=== PATIENT | male | born 1950 | race Caucasian/White ===

== ENCOUNTER → 2017-08-02 | Outpatient (CLI) | payer OTHER ==
[~2017-08-02] MED LIST: ALEVE220 MG PO; ASPIR 8181 MG PO; CHLORZOXAZONE500 MG PO; FLOMAX0.4 MG PO
--- NOTE | 2017-08-03 13:45 | Diagnostic Imaging Report ---
History: Mid cervical disks disorder. Neck pain. Preop Comparison studies: None Technique: Sagittal T1, T2 and IR, axial T2 and axial gradient echo Intravenous contrast: None Findings: Alignment: Straightening of the cervical lordosis. Grade 1 retrolistheses of C6 over C7 No scoliosis. Cervicomedullary junction: Degenerative changes of the atlantoaxial joint with irregularity of the dens and thickened transverse ligament Soft tissues: Laminectomy changes at C5 with blooming artifact on the left posterior elements secondary to metallic instrumentation Spinal cord: Atrophic changes with myelomalacia from C4 superior endplate through C6 superior endplate. Mild increased T2 signal at C6-7. Vertebrae: Edematous changes at C6 and C7 vertebral body, likely degenerative, the remaining signal intensity of the vertebra are unremarkable.. No fractures, infection or neoplasm. Degenerative changes: C2-C3: Patent canal and foramina. Fused facet joints. C3-C4: Patent canal and foramina. Fused facet joints C4-C5: Disc degeneration with loss of T2 signal and decreased intervertebral space. Patent canal and foramina. Fused facet joints C5-C6: Disc degeneration with mild increased T2 signal, likely degenerative. Diffuse disc osteophyte complex and bilateral uncinate process hypertrophy with patent canal and foramina. C6-C7: Disc degeneration with decreased intervertebral space and Modic type I changes. Diffuse disc osteophyte complex, bilateral uncinate process hypertrophy, facet hypertrophy and ligamentum flavum thickening results in severe canal stenosis and severe bilateral foraminal narrowing C7-T1: Disc degeneration with loss of T2 signal. Central disc osteophyte complex, bilateral uncinate process hypertrophy and facet hypertrophy results in mild canal stenosis and mild bilateral foraminal narrowing. IMPRESSION: 1. Severe degenerative canal stenosis and severe bilateral foraminal narrowing at C6-7 with mildly increased T2 signal in the cord suggestive of compressive myelitis. 2. Severe degenerative changes at C6-7 intervertebral disc with endplate edema secondary to Modic type I changes. 3. Posterior decompression at the level of C5 with patent canal and residual myelomalacia of the spinal cord at this level. Signed by: DR Joao Baltazar M.D. on 08/03/2017 1:41 PM
== END ==
LOC: MRI 14:13
PROVIDERS: ATTEND Neurological Surgery
DX: M50.020 Cervical disc disorder with myelopathy, mid-cervical region, unspecified level (principal)
CPT/HCPCS: 72141

== ENCOUNTER 2017-08-04 09:58 | Observation (INO) | payer OTHER ==
[2017-08-02 16:06] LABS: BASOPHILS % 0.3 % (0.0-1.0); EOSINOPHILS % 0.4 % (0.0-6.0); HEMATOCRIT 45.1 % (38.2-49.6); HEMOGLOBIN 15.6 g/dL (14.0-18.0); LYMPHOCYTES # (AUTO) 0.9 (1.0-3.2); LYMPHOCYTES % 9.3 % (18.0-39.1); MEAN CORPUSCULAR HEMOGLOBIN 30.1 pg (28-32); MEAN CORPUSCULAR HGB CONC 34.6 g/dL (31-35); MEAN CORPUSCULAR VOLUME 86.9 fL (81-99); MONOCYTES # (AUTO) 0.9 (0.2-0.8); MONOCYTES % 9.7 % (4.4-11.3); NEUTROPHILS # (AUTO) 7.6 (2.1-6.9); NEUTROPHILS % 80.1 % (38.7-80.0); PLATELET COUNT 219 x10e3/uL (140-360); RED BLOOD COUNT 5.19 x10e6/uL (4.3-5.7); RED CELL DISTRIBUTION WIDTH 11.9 % (11.7-14.4)
[2017-08-02 16:17] LABS: INR 1.1; PROTHROMBIN TIME 13.4 seconds (11.9-14.5)
[2017-08-02 16:18] LABS: PARTIAL THROMBOPLASTIN TIME 33.9 seconds (23.8-35.5)
[2017-08-02 16:25] LABS: ANION GAP 12.7 mmol/L (8-16); BLOOD UREA NITROGEN 25 mg/dL (7-26); BUN/CREATININE RATIO 29 (6-25); CALCIUM 9.8 mg/dL (8.4-10.2); CARBON DIOXIDE 27 mmol/L (22-29); CHLORIDE 105 mmol/L (98-107); CREATININE, SERUM 0.87 mg/dL (0.72-1.25); EST GLOMERULAR FILTRATION RATE > 60 ML/MIN (60-); GLUCOSE 134 mg/dL (74-118); POTASSIUM 3.7 mmol/L (3.5-5.1); SODIUM 141 mmol/L (136-145)
--- NOTE | 2017-08-02 17:24 | Diagnostic Imaging Report ---
PROCEDURE: Frontal and lateral views of the chest. COMPARISON: None. INDICATIONS: PRE-OPERATIVE CHEST X-RAY FOR NECK SURGERY FINDINGS: Lines/tubes: None. Lungs: The lungs are well inflated and clear. There is no evidence of pneumonia or pulmonary edema. Pleura: There is no pleural effusion or pneumothorax. Heart and mediastinum: The heart and the mediastinum are normal. Bones: No acute bony abnormality. Mild degenerative changes in the thoracic spine. IMPRESSION: 1. No acute cardiopulmonary abnormalities. Jose Luis Mock M.D. Dictated by: Jose Luis Mock M.D. on 08/02/2017 at 17:27 Electronically approved by: Jose Luis Mock M.D. on 08/02/2017 at 17:27
[~2017-08-04] VITALS: Ht 167.6 cm; Wt 64.9 kg
[~2017-08-04 09:58] MED LIST changes: +ACETAMINOPHEN 1000 MG/100 ML 100 ML IV ONE; +BACITRACIN 50,000 UNIT VIAL ONE; +BUPIVACAINE 0.5%/EPI 30 ML SDV INJ ONE; +CEFAZOLIN SOD 1 GM VIAL ONE; +GELATIN SPONGE SZ 100 ONE; +LIDOCAINE HCL (LTA) 4 ML SOLN ONE; +THROMBIN FOR SOLN 5,000 UNIT VIAL ONE
[2017-08-04] MEDS ORDERED: ACETAMINOPHEN 325 MG TAB PO PRN (12:15)
[2017-08-04] MEDS ORDERED: HYDROMORPHONE 2MG/ML INJ IV PRN (12:15)
[2017-08-04] MEDS ORDERED: HYDROMORPHONE 1MG/1ML INJ IV PRN (12:15)
[2017-08-04] MEDS ORDERED: MORPHINE SULFATE 5 MG/ML VIAL IM PRN (12:15)
[2017-08-04] MEDS ORDERED: MAGNESIUM/ALUMINUM/SIMETHICONE 30 ML UDC PO PRN (12:15)
[2017-08-04] MEDS ORDERED: PROMETHAZINE HCL (IM) 25 MG/ML VIAL IM PRN (12:15)
[2017-08-04] MEDS ORDERED: ONDANSETRON HCL INJ 2 MG/ML VIAL IV PRN (12:15)
[2017-08-04 13:36] VITALS: BP_SYST 164; BP_SYST 178; BP_DIAS 88; BP_DIAS 95
--- NOTE | 2017-08-04 13:49 | Operative Report ---
DATE OF PROCEDURE: August 04, 2017 PREOPERATIVE DIAGNOSIS: C5-C6 and C6-C7 spondylosis with mild low radiculopathy, M47.12. POSTOPERATIVE DIAGNOSIS: C5-C6 and C6-C7 spondylosis with mild low radiculopathy, M47.12. PROCEDURES 1. C5-C6 anterior cervical diskectomy and microsurgical osteophyte resection and allograft fusion, 35477. 2. C6-C7 anterior cervical diskectomy and microsurgical osteophyte resection and allograft fusion, 97829. 3. Preparation of iliac crest cortical cancellous allograft, 22215. 4. C5-C6 and C6-C7 anterior cervical plating with Synthes CSLP plate, [id number]. ANESTHESIA: General. INDICATIONS: Patient is a 67-year-old man with a previous spinal cord injury and a previous posterior fusion from C2 to C5, who now presents with a left C7 radiculopathy. He is found to have a large disk osteophyte complex at C6-C7 producing severe spinal stenosis and bilateral foraminal stenosis. His MRI shows worsening myelomalacia within the cord behind the vertebral bodies of C5, C6 and C7. The patient was taken to the operating room for decompression and fusion of the C5-C6 and C6-C7 in order to decompress his spinal cord and to be bridge his previous C2 and C5 fusion to the new C6-C7 segments. PROCEDURE: After induction of general anesthesia, the patient was placed on the operating table in the supine position. The right side of neck was prepped and draped in a sterile fashion. The fluoroscopic C-arm was positioned in a cross-table orientation. A transverse incision was created on the right side of the neck superimposed on the C6 vertebral body as determined by fluoroscopy. The platysma was divided in line with the incision. A subplatysmal dissection was carried out. An avascular plane of dissection was developed in the median sternocleidomastoid muscle, as well as medial to the carotid sheath to the anterior border of the cervical spine. The deep cervical fascia was opened. The esophagus was retracted to the left. The attachments of the longus coli muscles to the anterolateral aspects of the vertebral bodies of C5, C6 and C7 were divided. The anterior longitudinal was resected. Coppell posts were inserted into C5 and C7. The Coppell distractor was used distract both disk spaces simultaneously. The large anterior osteophytes were resected with Leksell rongeurs. The contents of both disks were thoroughly evacuated with angled curettes and pituitary rongeurs. At C6-C7, it was necessary to remove portions of the inferior end-plate of C6 and superior end-plate of C7 in order to re-establish the disk height and get access to the very large posterior osteophyte. The posterior osteophyte was then drilled with a 2 mm cutting bur until it was hollowed down and reduced to a thin shell of cortical bone, which was then elevated along with its attachments to the posterior longitudinal ligament away from the dura with a microhook and resected in piecemeal fashion with a Kerrison rongeur until it was completely removed. Excellent decompression of the dura was thus achieved. The medial aspects of the uncinate processes were resected bilaterally to expose and decompress the origins of the C7 nerve roots, particularly on the left side. After satisfactory compression had been achieved, the end-plates at both levels were prepared for fusion. Two pieces of tricortical and iliac crest allograft were cut to the size and shapes of the disk spaces and were inserted into the disk spaces under distraction and fluoroscopic guidance. The distraction was released and distraction posts were removed. A Synthes CSLP 34 mm anterior cervical plate was selected, and was affixed to the vertebral bodies of C5, C6 and C7 with one 14 and five 16-mm screws. All screws were 4.35 mm in diameter. All screws were locked with the appropriate locking screws. An excellent construct was obtained. The wound was copiously irrigated with Bacitracin solution. Meticulous hemostasis was secured. Retractor was removed. The platysma was closed with 3-0 Vicryl sutures. The skin was closed with 4-0 Monocryl sutures in a subcuticular fashion. Steri-Strips and dressing were applied. The patient was awakened, extubated and taken to the postanesthesia care unit in stable condition. No intraoperative complications were encountered. Estimated blood loss was 20 mL. Job#: [id number] AURELIA
[2017-08-04] MEDS ORDERED: CEFAZOLIN SOD 1 GM/NS 50ML 50 ML IV SCH (14:00)
[2017-08-04] MEDS ORDERED: FENTANYL CITRATE/PF 100MCG/2 ML INJ ONE ×2 (14:25→18:28)
[2017-08-04 14:53] VITALS: BP 124/76
[2017-08-04] MEDS: LACTATED RINGER'S 1,000 ML IV SCH ×2 (15:00→21:37)
[2017-08-04] MEDS: CARISOPRODOL 350 MG TAB PO PRN ×2 (16:15→23:36)
[2017-08-04] MEDS: OXYCODONE/ACETAMINOPHEN 5-325 1 EACH TABLET PO PRN ×2 (16:15→23:36)
[2017-08-04] MEDS: CEFAZOLIN SOD 1 GM VIAL IV SCH (17:00)
[2017-08-04] MEDS ORDERED: MORPHINE SULFATE INJ 10 MG/ML IM PRN (18:00)
[2017-08-04] MEDS ORDERED: MIDAZOLAM HCL 2 MG/2 ML VIAL ONE (18:28)
[2017-08-04 19:22] VITALS: BP 124/76
[2017-08-04] MEDS ORDERED: ONDANSETRON HCL INJ 2 MG/ML VIAL ONE (19:47)
[2017-08-04] MEDS ORDERED: PROPOFOL IV EMULSION 10 MG/ML 20 ML VIAL ONE (19:47)
[2017-08-04] MEDS ORDERED: DESFLURANE 240 ML BTL INH ONE (19:47)
[2017-08-04] MEDS ORDERED: LIDOCAINE HCL 2% LOCAL INJ 5 ML SDV VIAL INJ ONE (19:47)
[2017-08-04] MEDS ORDERED: GLYCOPYRROLATE INJ 1MG/ 5 ML SYR ONE (19:47)
[2017-08-04] MEDS ORDERED: NEOSTIGMINE 5 MG/5ML SYR ONE (19:47)
[2017-08-04] MEDS ORDERED: ROCURONIUM BROMIDE 10 MG/ML 5ML VIAL ONE (19:47)
[2017-08-04] MEDS ORDERED: DEXAMETHASONE SOD PHOS INJ 4 MG/ML VIAL ONE (19:47)
[2017-08-04] MEDS ORDERED: LIDOCAINE HCL 2% JELLY 5 ML TUBE ONE (19:47)
[2017-08-04 20:00] VITALS: BP 137/78
[2017-08-04] MEDS ORDERED: ZOLPIDEM TARTRATE 5 MG TAB PO PRN (21:00)
[2017-08-04 21:48] VITALS: BP 137/78
[2017-08-05] VITALS: BP 160/97
[2017-08-05] MEDS: CEFAZOLIN SOD 1 GM VIAL IV SCH ×2 (02:24→10:18)
[2017-08-05 04:00] VITALS: BP 168/83
[2017-08-05] MEDS: LACTATED RINGER'S 1,000 ML IV SCH (04:43)
[2017-08-05 07:05] VITALS: BP 160/85
[2017-08-05 08:00] VITALS: BP 160/85
--- NOTE | 2017-08-05 08:38 | Diagnostic Imaging Report ---
PROCEDURE: X-RAY CERVICAL SPINE, TWO VIEWS COMPARISON: None. INDICATIONS: S/P SURGERY FINDINGS: C1 through C7 are visualized on the lateral view. The patient is status post status post anterior fusion of C5-C7 with metallic plate and transfixing screws which are intact and in adequate alignment. In addition there is a surgical wire through the C4-C5 spinous process with fusion of the posterior elements noted. The prevertebral soft tissues are prominent. CONCLUSION: Status post anterior fusion of C5-C7 with intact hardware and adequate alignment. César Perdomo D.O. Dictated by: César Perdomo D.O. on 08/05/2017 at 8:41 Electronically approved by: César Perdomo D.O. on 08/05/2017 at 8:41
[2017-08-05] MEDS ORDERED: TAMSULOSIN HCL 0.4 MG CAP PO SCH (09:00)
[2017-08-05] MEDS ORDERED: (Chlorzoxazone 500 MG) PO SCH (09:00)
[2017-08-05] MEDS: OXYCODONE/ACETAMINOPHEN 5-325 1 EACH TABLET PO PRN (10:24)
[2017-08-05] MEDS ORDERED: NORCO 7.5-3251 EACH PO (10:50)
== END 2017-08-05 11:36 | disposition home or self-care (01) ==
LOC: OR 09:58 → PACU V 12:03 → IMCU 13:01
PROVIDERS: ADMIT Neurological Surgery; ATTEND Neurological Surgery
DX: M50.023 Cervical disc disorder at C6-C7 level with myelopathy (principal); I10 Essential (primary) hypertension; M19.90 Unspecified osteoarthritis, unspecified site
CPT/HCPCS: 20931; 22551; 22552; 22845; 36415; 71046; 72040; 77003; 80048; 85025; 85610; 85730; 86850; 86900; 88304; 93005; 97116; 97162; C1768; G0378 ×2; G8978; G8979; J0690 ×2; J1100; J2001 ×2; J2250; J2405; J3490; J7120; J2270